=== PATIENT | female | born 1945 | race Caucasian/White ===

== ENCOUNTER 2018-03-25 08:37 | Observation (INO) | payer MEDICARE, OTHER ==
[~2018-03-25] VITALS: Ht 157.5 cm; Wt 56.5 kg
[~2018-03-25 08:37] MED LIST: CARAFATE1 GM/10 ML PO; DICYCLOMINE HCL20 MG PO; HYDROCODONE; LORTAB 10-5001 EACH PO; OMEPRAZOLE40 MG PO; RANITIDINE HCL150 MG PO; SOMA PO; SYNTHROID75 MCG; gabapentin PO
[2018-03-25] MEDS ORDERED: ASPIRIN 325 MG TAB EC PO NR (09:05)
--- NOTE | 2018-03-25 09:31 | Diagnostic Imaging Report ---
EXAM: XR CHEST 2 VIEWS DATE: 03/25/2018 9:05 AM INDICATION: Pain COMPARISON: 08/18/2012, no report available FINDINGS: Lines and Tubes: None Heart and Mediastinum: No acute cardiomediastinal findings. Lungs and Pleura: There is minimal biapical scarring. Underlying emphysematous changes possible given asymmetric apical lucencies. Ill-defined airspace opacity left lung base, more conspicuous. Stable granuloma left upper lobe. Bones and Soft Tissues: No acute findings. IMPRESSION: 1. Ill-defined left basilar opacity could represent atelectasis or pneumonia. Signed by: Dr. Oscar Baez MD on 03/25/2018 9:27 AM
[2018-03-25 09:33] LABS: BASOPHILS # (AUTO) 0.1 (0.0-0.1); BASOPHILS % 0.7 % (0.0-1.0); EOSINOPHILS # (AUTO) 0.1 (0.0-0.4); EOSINOPHILS % 1.5 % (0.0-6.0); HEMATOCRIT 44.7 % (34.2-44.1); HEMOGLOBIN 15.3 g/dL (12.0-16.0); LYMPHOCYTES # (AUTO) 2.2 (1.0-3.2); LYMPHOCYTES % 30.1 % (18.0-39.1); MEAN CORPUSCULAR HEMOGLOBIN 30.9 pg (28-32); MEAN CORPUSCULAR HGB CONC 34.2 g/dL (31-35); MEAN CORPUSCULAR VOLUME 90.3 fL (81-99); MONOCYTES # (AUTO) 0.5 (0.2-0.8); MONOCYTES % 6.8 % (4.4-11.3); NEUTROPHILS # (AUTO) 4.5 (2.1-6.9); NEUTROPHILS % 60.8 % (38.7-80.0); PLATELET COUNT 182 x10e3/uL (140-360); RED BLOOD COUNT 4.95 x10e6/uL (3.6-5.1); RED CELL DISTRIBUTION WIDTH 12.4 % (11.7-14.4)
[2018-03-25 09:41] LABS: CLARITY,URINE CLEAR (CLEAR); COLOR,URINE YELLOW (YELLOW); KETONES,URINE NEGATIVE (NEGATIVE); LEUKOCYTE ESTERASE ,URINE NEGATIVE (NEGATIVE); NITRITE,URINE NEGATIVE (NEGATIVE); PROTEIN,URINE DIPSTICK NEGATIVE (NEGATIVE)
[2018-03-25 09:42] LABS: BILIRUBIN,URINE NEGATIVE (NEGATIVE); URINE UROBILINOGEN 0.2 mg/dL (0.2 - 1)
[2018-03-25 09:49] LABS: INR 0.74; PROTHROMBIN TIME 11.1 seconds (11.9-14.5)
[2018-03-25 09:50] LABS: PARTIAL THROMBOPLASTIN TIME 30.3 seconds (23.8-35.5)
[2018-03-25 09:51] LABS: ALANINE AMINOTRANSFERASE 13 IU/L (0-55); ALBUMIN 4.1 g/dL (3.5-5.0); ALBUMIN/GLOBULIN RATIO 1.5 (0.8-2.0); ALKALINE PHOSPHATASE 55 IU/L (40-150); ANION GAP 11.9 mmol/L (8-16); BLOOD UREA NITROGEN 18 mg/dL (7-26); BUN/CREATININE RATIO 22 (6-25); CARBON DIOXIDE 22 mmol/L (22-29); CHLORIDE 113 mmol/L (98-107); CREATINE KINASE 38 IU/L (29-168); CREATININE, SERUM 0.82 mg/dL (0.57-1.11); EST GLOMERULAR FILTRATION RATE > 60 ML/MIN (60-); GLUCOSE 98 mg/dL (74-118); MAGNESIUM 2.3 MG/DL (1.3-2.1); POTASSIUM 3.9 mmol/L (3.5-5.1); SODIUM 143 mmol/L (136-145)
[2018-03-25 10:00] LABS: BACTERIA,URINE FEW /HPF; EPITHELIAL CELLS,URINE FEW /LPF; MUCUS,URINE FEW (RARE); RBC,URINE 0-5 /HPF (0-5); WBC,URINE (MAN) 0-5 /HPF (0-5)
[2018-03-25] MEDS ORDERED: ALENDRONATE SOD70 MG PO (10:22)
[2018-03-25] MEDS ORDERED: ONDANSETRON HCL INJ 2 MG/ML VIAL IV PRN (10:45)
[2018-03-25] MEDS ORDERED: MORPHINE SULFATE 2 MG/ML SYR IV PRN (10:45)
[2018-03-25] MEDS ORDERED: IBUPROFEN 600 MG TAB PO PRN (10:45)
--- OUTSIDE RECORDS SUMMARY | 2018-03-25 10:49 | XMS REPORT ---
Author Author [facility] Address Unknown Phone Unavailable Care Team Providers Care [facility] Name Role Phone Celi XIE Unavailable Unavailable Problems This patient has no known problems. Allergies, Adverse Reactions, Alerts This patient has no known allergies or adverse reactions. Medications This patient has no known medications. Results Test Description Test Time Test Comments Text Results Atomic Results Result Comments CHEST 2 VIEWS 2018-03-25 09:26:00 [place] [address] Patient Name: MARCUS HERNANDEZ MR #: [id number] : 1945 Age/Sex: 73/F Req #: [id number] [facility] Physician: Ordered by: TONIA XIE MD Report #: [id number] Location: ER Room/Bed: Procedure: [id number] DX/CHEST 2 VIEWS Exam Date: 03/25/18 Exam Time: 0910 REPORT STATUS: Signed EXAM: XR CHEST 2 VIEWS DATE: 03/25/2018 9:05 AM RAVINDER CATION: Pain COMPARISON: 08/18/2012, no report available FINDINGS: Lines and Tubes: None Heart and Mediastinum: No acute cardiomediastinal findings. Lungs and Pleura: There is minimal biapical scarring. Underlying emphysematous changes possible given asymmetric apical lucencies. Ill-defined airspace opacity left lung base, more conspicuous. Stable granuloma left upper lobe. Bones and Soft Tissues: No acute findings. IMPRESSION: 1. Ill-defined left basilar opacity could represent atelectasis or pneumonia. Signed by: Dr. Oscar Baez MD on 03/25/2018 9:27 AM Dictated By: OSCAR BAEZ MD 6 Transcribed By: [place] on 03/25/18926 COPY TO: TONIA XIE MD
[2018-03-25] MEDS: FAMOTIDINE 20 MG/2 ML VIAL IV SCH ×2 (12:18→22:17)
[2018-03-25 13:30] VITALS: BP 118/77
[2018-03-25 13:31] VITALS: BP 118/77
[2018-03-25 14:56] VITALS: BP 118/77
[2018-03-25 15:41] VITALS: BP 114/70
[2018-03-25 19:03] LABS: CREATINE KINASE MB 0.8 ng/mL (0-5.0)
[2018-03-25 20:00] VITALS: BP 107/69
[2018-03-25] MEDS: PANTOPRAZOLE SOD 40 MG TABEC PO SCH (20:26)
[2018-03-25] MEDS: DICYCLOMINE HCL 20 MG TAB PO SCH (21:40)
[2018-03-25] MEDS: SUCRALFATE 1 GM/10 ML SUSP PO SCH (21:41)
[2018-03-26] VITALS: BP 110/65
[2018-03-26 04:00] VITALS: BP 105/65
[2018-03-26] MEDS ORDERED: LEVOTHYROXINE SODIUM 75 MCG TAB PO SCH (05:00)
[2018-03-26 05:33] LABS: BASOPHILS # (AUTO) 0.1 (0.0-0.1); BASOPHILS % 0.6 % (0.0-1.0); EOSINOPHILS # (AUTO) 0.1 (0.0-0.4); HEMATOCRIT 42.3 % (34.2-44.1); HEMOGLOBIN 14.4 g/dL (12.0-16.0); LYMPHOCYTES # (AUTO) 2.9 (1.0-3.2); LYMPHOCYTES % 29.8 % (18.0-39.1); MEAN CORPUSCULAR HEMOGLOBIN 31.1 pg (28-32); MEAN CORPUSCULAR VOLUME 91.4 fL (81-99); MONOCYTES # (AUTO) 0.7 (0.2-0.8); MONOCYTES % 6.6 % (4.4-11.3); NEUTROPHILS # (AUTO) 6.1 (2.1-6.9); NEUTROPHILS % 61.7 % (38.7-80.0); PLATELET COUNT 182 x10e3/uL (140-360); RED BLOOD COUNT 4.63 x10e6/uL (3.6-5.1); RED CELL DISTRIBUTION WIDTH 12.5 % (11.7-14.4)
[2018-03-26 05:50] LABS: ANION GAP 12.9 mmol/L (8-16); BLOOD UREA NITROGEN 16 mg/dL (7-26); BUN/CREATININE RATIO 21 (6-25); CALCIUM 9.7 mg/dL (8.4-10.2); CARBON DIOXIDE 22 mmol/L (22-29); CHLORIDE 111 mmol/L (98-107); CHOL/HDL RATIO 3.5 (3.0-3.6); CHOLESTEROL 204 MD/DL (0-199); CREATININE, SERUM 0.77 mg/dL (0.57-1.11); EST GLOMERULAR FILTRATION RATE > 60 ML/MIN (60-); GLUCOSE 97 mg/dL (74-118); HDL CHOLESTEROL 59 MG/DL (40-60); LDL CHOLESTEROL 128 MG/DL (60-130); POTASSIUM 3.9 mmol/L (3.5-5.1); SODIUM 142 mmol/L (136-145); TRIGLYCERIDES 83 MG/DL (0-149)
[2018-03-26 06:09] LABS: CREATINE KINASE 39 IU/L (29-168)
[2018-03-26] MEDS ORDERED: ALENDRONATE SODIUM 70 MG TAB PO SCH (06:30)
[2018-03-26 07:42] VITALS: BP 120/65
[2018-03-26 08:00] VITALS: BP 120/65
[2018-03-26] MEDS: PANTOPRAZOLE SOD 40 MG TABEC PO SCH (08:19)
[2018-03-26] MEDS: DICYCLOMINE HCL 20 MG TAB PO SCH ×2 (08:19→12:43)
[2018-03-26] MEDS: SUCRALFATE 1 GM/10 ML SUSP PO SCH ×2 (08:19→12:42)
[2018-03-26] MEDS ORDERED: FAMOTIDINE 20 MG TAB PO SCH (09:00)
[2018-03-26] MEDS ORDERED: ASPIRIN 81 MG ENTERIC COATED PO SCH (09:00)
[2018-03-26] MEDS ORDERED: CELEBREX100 MG PO (12:03)
[2018-03-26 12:18] VITALS: BP 115/67
--- NOTE | 2018-03-26 12:19 | Consultation ---
DATE OF CONSULTATION: March 26, 2018 CARDIOLOGY CONSULTATION REASON FOR CONSULTATION: Chest pain. CONSULTING PHYSICIAN: Dr. Elliott. HISTORY OF PRESENT ILLNESS: Ms. Valdez is a 73-year-old female with a past medical history of hypothyroidism and chronic gastritis, who states that she came in to the ER yesterday after experiencing left-sided chest pain that was radiating to her left shoulder. She states that this pain was new; however, it is familiar to her because it has happened before. Previously, she had been informed that this pain was musculoskeletal. Patient reports that at this moment, this pain is about 2/10. She denies any associated shortness of breath and pain is not provoked by activity. Denies dizziness, syncope, fever, chills, recent trauma, dysuria, or constipation. PAST MEDICAL HISTORY 1. Hypothyroidism. 2. Chronic gastritis. 3. Malignant bladder mass that was removed in 2012. PAST SURGICAL HISTORY: Bladder mass removal, left shoulder surgery, back surgery, hysterectomy, tonsillectomy. SOCIAL HISTORY: She is , with children and also undergoes acupuncture for bladder control. PHYSICAL EXAMINATION VITAL SIGNS: Temperature 96.8, pulse 70, respiratory rate 20, blood pressure 120/65, oxygen saturation 98% on room air. GENERAL: Alert and oriented x3, resting comfortably in bed, does not appear to be in any acute distress. LUNGS: Clear to auscultation throughout. No wheezing, no rhonchi or crackles. CARDIOVASCULAR: Regular rate and rhythm. Normal S1, S2. No S3 or S4 auscultated. ABDOMEN: Soft, nontender. EXTREMITIES: Lower extremities; 2+ pedal pulses. No edema. CARDIOVASCULAR MEDICATIONS: Aspirin 81 mg p.o. daily. IMAGING: Chest x-ray with ill-defined left basilar opacity, which could represent atelectasis or pneumonia. TELEMETRY: Normal sinus rhythm. ASSESSMENT 1. Atypical chest pain, this chest pain was able to be provoked on palpation. 2. Musculoskeletal pain. 3. Hypothyroidism. 4. Chronic gastritis. 5. Urinary frequency. PLAN: Okay to discharge this patient from a cardiac standpoint. We are going to initiate NSAIDs for now. Patient needs to complete cardiac testing as outpatient. Consider repeat chest x-ray also as outpatient. Patient to followup with Dr. Elliott and also Dr. Stein, cardiology, in the coming week. We will monitor this patient very closely. Thank you for this consultation. Dictated by: Carol Mullins NP Job#: [id number] KIRSTEN
[2018-03-26] MEDS: FAMOTIDINE 20 MG/2 ML VIAL IV SCH (12:42)
--- NOTE | 2018-03-27 04:46 | Discharge Summary ---
AUDIO CUTTING IN AND OUT IN MULTIPLE PORTIONS OF THE REPORT DISCHARGE DIAGNOSES: Chest pain, ruled out for myocardial infarction. HISTORY OF PRESENT ILLNESS: Patient is to after moving around 2 weeks, have outpatient studies her home medications. Please see hospital chart for full details. BROOK KEE MD Job#: [id number] CQ
== END 2018-03-26 12:57 | disposition home or self-care (01) ==
LOC: ER 08:37 → ERHOLD 10:41 → MED/SURG2 13:24
PROVIDERS: ADMIT Family Medicine; ATTEND Family Medicine
DX: R07.89 Other chest pain (principal); K21.9 Gastro-esophageal reflux disease without esophagitis; Z82.49 Family history of ischemic heart disease and other diseases of the circulatory system; Z88.5 Allergy status to narcotic agent; Z91.048 Other nonmedicinal substance allergy status; E03.9 Hypothyroidism, unspecified; K29.50 Unspecified chronic gastritis without bleeding; R35.0 Frequency of micturition
CPT/HCPCS: 36415 ×2; 71046; 80048; 80053; 80061; 81001; 82550 ×2; 82553 ×2; 83735; 84484 ×2; 85025 ×2; 85610; 85730; 87086; 93005; 99284; G0378 ×2; J2270; J2405; S0164 ×2

== ENCOUNTER → 2018-04-19 | Outpatient (CLI) | payer MEDICARE, OTHER ==
[~2018-04-19] MED LIST changes: +ALENDRONATE SOD70 MG PO; +CELEBREX100 MG PO
--- NOTE | 2018-04-19 10:54 | Diagnostic Imaging Report ---
CT chest without enhancement CPT code: 51779 INDICATION: Pulmonary fibrosis, possible mass on chest x-ray TECHNIQUE: Thin collimation axial images obtained from the thoracic inlet to the level of the diaphragm without intravenous contrast. Dose reduction techniques used: Automated exposure control, adjustment of the mAs and/or kVp according to patient size, standardized low-dose protocol, and/or iterative reconstruction technique. RADIATION DOSE: Total DLP: 232.5 mGy*cm Estimated effective dose: (DLP x 0.015 x size factor) mSv CTDIvol has been reviewed. It is below the limits set by the Radiation Protocol Committee (RPC). COMPARISON: Chest x-ray 03/25/2018 and 08/18/2012 CHEST FINDINGS: Lymph nodes: No enlarged axillary, supraclavicular lymph nodes. A precarinal lymph node measures 1.2 x 1.5 cm without calcification. A calcified left mediastinal lymph node measures 9 mm. There are subcentimeter calcifications in the AP window. No enlarged subcarinal or hilar lymph nodes. Thyroid: Normal in size without mass in the visualized parenchyma.. Mediastinum: The ascending aorta measures 3.7 x 3.9 cm. There are calcifications in the aortic arch and in the distal brachiocephalic artery. No significant calcifications in the coronary arteries. The main pulmonary artery measures 2.8 cm. The heart is top normal in size. No pericardial effusion. The esophagus is normal. Lungs: Right: Mild apical pleural-parenchymal thickening. Dependent microatelectasis in the lower lobe. No reticulation or honeycombing. No emphysematous changes. No soft tissue mass. Left: Mild apical pleural-parenchymal thickening. Dependent microatelectasis in the lower lobe. Linear band of subsegmental atelectasis/scar in the anterior basal segment of the lower lobe adjacent to the mediastinum. No reticulation or honeycombing. Calcified granuloma in the lateral upper lobe measures 5 x 6 mm and is stable. A 4 mm calcified granuloma is in the lower lobe abutting the diaphragm. No soft tissue mass. Airways: Unremarkable Pleura: No pleural effusion or pleural based mass.. ABDOMEN FINDINGS: There are calcified granulomata in the spleen. Visualized portion of the liver, pancreas, adrenal glands, and left kidney are unremarkable. Bones: No focal osseous lesions. There is a Schmorl's node in the inferior endplate of T6. Soft tissues: Unremarkable. IMPRESSION: 1. No evidence of pulmonary fibrosis. Wispy bands of chronic atelectasis/scar in the left lower lobe adjacent to the mediastinum. 2. Healed granulomatous inflammation. 3. Ascending aortic ectasia and atherosclerosis. 4. Prominent, noncalcified mediastinal lymph node bears watching to confirm stability. This could be confirmed annually with low-dose screening CT. Signed by: Dr. Govind Montalvo MD on 04/19/2018 10:50 AM
== END ==
LOC: CT 08:32
PROVIDERS: ATTEND Internal Medicine Interventional Cardiology
DX: J84.10 Pulmonary fibrosis, unspecified (principal); R07.9 Chest pain, unspecified; R06.02 Shortness of breath; R05 Cough
CPT/HCPCS: 71250